=== PATIENT | male | born 1955 | race Hispanic/Latino ===

== ENCOUNTER 2022-11-01 10:45 | Inpatient (IN) | payer OTHER ==
[2022-11-05 11:12] VITALS: BMI 34.2
[2022-11-06] MEDS ORDERED: Thrombin 5000 UNITS/5 ML VIAL ONE (06:10)
[2022-11-06] MEDS ORDERED: Neomycin-Polymyxin 1 ML AMP ONE (06:10)
[2022-11-06] MEDS ORDERED: Sodium Chloride 0.9% 100 ML ONE (06:26)
[2022-11-06] MEDS ORDERED: CEFAZOLIN 2 GM VIAL ONE (06:26)
[2022-11-06] MEDS ORDERED: Acetaminophen 325 MG TAB PO PRN (06:38)
[2022-11-06] MEDS ORDERED: Acetaminophen/Codeine 30-300mg Tablet PO PRN (06:38)
[2022-11-06] MEDS ORDERED: diphenhydrAMINE 50 MG/ML VIAL IVP PRN (06:38)
[2022-11-06] MEDS ORDERED: Morphine 2 MG/ML VIAL SLOW IVP PRN (06:38)
[2022-11-06] MEDS ORDERED: Cyclobenzaprine 10 MG TAB PO PRN (06:38)
[2022-11-06] MEDS ORDERED: Mag-Al 1200 mg/1200 mg/30 ML UDCUP PO PRN (06:38)
[2022-11-06] MEDS ORDERED: Ondansetron PF 4 MG/2 ML Vial IVP PRN (06:38)
[2022-11-06] MEDS ORDERED: Milk Of Magnesia 30 ML UDCUP PO PRN (06:38)
[2022-11-06] MEDS ORDERED: Promethazine 25 MG TAB PO PRN (06:38)
[2022-11-06] MEDS ORDERED: Fentanyl 250 MCG/5 ML VIAL ONE (06:44)
[2022-11-06] MEDS ORDERED: Sodium Chloride 0.9% 1,000 ML IV SCH (06:45)
[2022-11-06] MEDS ORDERED: Rocuronium Bromide 10 MG/ML (10ML VIAL) ONE (06:56)
[2022-11-06] MEDS ORDERED: Ondansetron PF 4 MG/2 ML Vial ONE ×2 (06:56→13:53)
[2022-11-06] MEDS ORDERED: Dexamethasone 20 MG/5 ML VIAL ONE (06:56)
[2022-11-06] MEDS ORDERED: Lidocaine 1% PF 5 ML VIAL ONE (06:56)
[2022-11-06] MEDS ORDERED: PROPOFOL 200 MG/20 ML VIAL ONE (06:56)
[2022-11-06] MEDS ORDERED: PHENYLEPHRINE-NS 100 MCG/ML 10 ML SYRINGE ONE (06:56)
[2022-11-06] MEDS ORDERED: Vecuronium 10 MG VIAL ONE (06:56)
[2022-11-06 08:01] LABS: SARS-CoV-2 NAA Rapid Test Not Detected (NotDetected)
[2022-11-06] MEDS ORDERED: Phenylephrine 10 MG/ML VIAL ONE (08:36)
[2022-11-06] MEDS ORDERED: SUGAMMADEX SODIUM 200 MG/2 ML VIAL ONE (11:21)
[2022-11-06] MEDS ORDERED: HYDROmorphone 0.5 MG/0.5 ML SYRINGE ONE ×4 (12:12→12:49)
[2022-11-06] MEDS ORDERED: Fentanyl 100 MCG/2 ML VIAL ONE (12:58)
[2022-11-06] MEDS ORDERED: Promethazine HCl 25 MG/ML VIAL ONE (14:04)
[2022-11-06] MEDS ORDERED: Morphine 2 MG/ML VIAL ONE (16:51)
[2022-11-06] MEDS: Sodium Chloride 0.9% 1,000 ML IV SCH (18:35)
[2022-11-06] MEDS: CEFAZOLIN 2 GM in Sodium Chloride 0.9% 100 ML IVPB SCH (18:35)
[2022-11-06] MEDS: HYDROcodone/Acetaminophen 7.5/325 mg Tablet PO PRN (20:32)
[2022-11-07] MEDS: CEFAZOLIN 2 GM in Sodium Chloride 0.9% 100 ML IVPB SCH (01:59)
[2022-11-07] MEDS ORDERED: Dextrose 50% Abboject 50 ML SYRINGE SLOW IVP PRN (02:30)
[2022-11-07] MEDS ORDERED: HumaLOG 300 UNITS/3 ML VIAL SC PRN (02:30)
[2022-11-07] MEDS ORDERED: Dextrose 5% in Water 1,000 ML IV PRN (02:30)
[2022-11-07] MEDS: HYDROcodone/Acetaminophen 7.5/325 mg Tablet PO PRN (03:29)
[2022-11-07] MEDS: Sodium Chloride 0.9% 1,000 ML IV SCH (03:33)
[2022-11-07 08:44] VITALS: BP 132/77; TEMP 98.4
[2022-11-07] MEDS ORDERED: Lisinopril 20 MG TAB PO SCH (09:00)
[2022-11-07] MEDS ORDERED: FLU VACC QS2022-23(65YR UP)/PF 240 MCG/0.7 ML SYRINGE IM ONE (09:00)
== END 2022-11-07 09:46 | disposition home or self-care (01) | DRG 472 ==
LOC: SURG A 11-06 05:34 → MSONC 11-06 17:46
PROVIDERS: ADMIT Neurological Surgery; ATTEND Neurological Surgery
PROC: 0RG20A0 Fusion of 2 or more Cervical Vertebral Joints with Interbody Fusion Device, Anterior Approach, Anterior Column, Open Approach (ICD-10-PCS; principal; 2022-11-06)
PROC: 0RB30ZZ Excision of Cervical Vertebral Disc, Open Approach (ICD-10-PCS; 2022-11-06)
DX: M50.01 Cervical disc disorder with myelopathy, high cervical region (principal); M47.12 Other spondylosis with myelopathy, cervical region; M50.00 Cervical disc disorder with myelopathy, unspecified cervical region; M48.02 Spinal stenosis, cervical region; E78.00 Pure hypercholesterolemia, unspecified; G89.29 Other chronic pain; E11.9 Type 2 diabetes mellitus without complications; I10 Essential (primary) hypertension; M50.21 Other cervical disc displacement, high cervical region; M48.062 Spinal stenosis, lumbar region with neurogenic claudication; M21.371 Foot drop, right foot; Z79.84 Long term (current) use of oral hypoglycemic drugs; Z79.899 Other long term (current) drug therapy; Z79.82 Long term (current) use of aspirin
CPT/HCPCS: 36416; 87804; 93005; 93010; C1713; C1768; J1100; J1170; J2272; J2370; J2405; J2550; J2704; J3010; J3490; J7050; U0002

== ENCOUNTER 2023-05-22 14:58 | Outpatient (CLI) | payer OTHER ==
[2023-05-22 15:47] LABS: Hemoglobin 14.3 g/dL (13.5-17.5); Mean Corpuscular Hemoglobin 29.4 pg (27.0-33.0); Mean Corpuscular Volume 88.9 fl (81.2-95.1); Platelet Count 147 10x3/uL (150-450); RBC Distribution Width 12.6 % (11.5-14.5); Red Blood Cell (RBC) Count 4.87 10x6/uL (4.32-5.72)
[2023-05-22 16:03] LABS: PTT 29.9 sec (22.0-33.0); Prothrombin Time 10.8 sec (9.5-12.1)
[2023-05-22 16:19] LABS: Anion Gap 19 mmol/L (10-20); BUN (Urea Nitrogen) 20 mg/dL (8.4-25.7); Calc. Creatinine Clearance 0 mL/min (70-130); Calcium 9.6 mg/dL (7.8-10.44); Carbon Dioxide 23 mmol/L (23-31); Chloride 102 mmol/L (98-107); Estimated GFR 81; Glucose 192 mg/dL (80-115); Potassium 4.5 mmol/L (3.5-5.1); Sodium 139 mmol/L (136-145)
== END 2023-05-22 14:59 | disposition home or self-care (01) ==
LOC: LABBT 14:58
PROVIDERS: ATTEND Neurological Surgery
DX: Z01.818 Encounter for other preprocedural examination (principal); T84.296A Other mechanical complication of internal fixation device of vertebrae, initial encounter; M48.061 Spinal stenosis, lumbar region without neurogenic claudication
CPT/HCPCS: 80048; 85027; 85610; 85730; 93005; 93010

== ENCOUNTER 2023-05-22 16:00 | Inpatient (IN) | payer OTHER ==
[2023-05-23] MEDS ORDERED: Vancomycin 1 GM VIAL ONE (06:20)
[2023-05-23] MEDS ORDERED: Bupivacaine HCl 0.5%/Epinephrine 1:200,000/PF 30 ml Vial ONE (06:20)
[2023-05-23] MEDS ORDERED: Thrombin 5000 UNITS/5 ML VIAL ONE (06:20)
[2023-05-23] MEDS ORDERED: Dexmedetomidine 200 MCG/2 ML VIAL ONE (06:26)
[2023-05-23] MEDS ORDERED: Fentanyl 250 MCG/5 ML VIAL ONE (06:26)
[2023-05-23] MEDS ORDERED: Morphine 2 MG/ML VIAL SLOW IVP PRN (06:38)
[2023-05-23] MEDS ORDERED: Prochlorperazine 10 MG/2 ML VIAL IM PRN (06:38)
[2023-05-23] MEDS ORDERED: Ondansetron PF 4 MG/2 ML Vial IVP PRN ×2 (06:38→06:51)
[2023-05-23] MEDS ORDERED: Promethazine HCl 25 MG/ML VIAL IM PRN ×2 (06:38→14:03)
[2023-05-23] MEDS ORDERED: Mag-Al 1200 mg/1200 mg/30 ML UDCUP PO PRN (06:38)
[2023-05-23] MEDS ORDERED: Milk Of Magnesia 30 ML UDCUP PO PRN (06:38)
[2023-05-23] MEDS ORDERED: tiZANidine HCl 4 MG TAB PO PRN (06:43)
[2023-05-23] MEDS ORDERED: Sodium Chloride 0.9% 100 ML ONE ×2 (06:47→15:06)
[2023-05-23] MEDS ORDERED: CEFAZOLIN 2 GM VIAL ONE ×2 (06:47→15:06)
[2023-05-23] MEDS ORDERED: ePHEDrine Sulfate 50 MG/10 ML VIAL ONE (07:04)
[2023-05-23] MEDS ORDERED: Dexamethasone 20 MG/5 ML VIAL ONE (07:04)
[2023-05-23] MEDS ORDERED: Vecuronium 10 MG VIAL ONE ×2 (07:04→09:52)
[2023-05-23] MEDS ORDERED: Glycopyrrolate 0.2 MG/ML 5 ML SYRINGE ONE (07:04)
[2023-05-23] MEDS ORDERED: Rocuronium Bromide 10 MG/ML (10ML VIAL) ONE (07:04)
[2023-05-23] MEDS ORDERED: Lidocaine 1% PF 5 ML VIAL ONE (07:04)
[2023-05-23] MEDS ORDERED: Ondansetron PF 4 MG/2 ML Vial ONE (07:04)
[2023-05-23] MEDS ORDERED: PHENYLEPHRINE-NS 100 MCG/ML 10 ML SYRINGE ONE (07:04)
[2023-05-23] MEDS ORDERED: PROPOFOL 200 MG/20 ML VIAL ONE (07:04)
[2023-05-23] MEDS ORDERED: NEOSTIGMINE 3 MG/3 ML SYR 3 MG/3 ML SYRINGE ONE (07:04)
[2023-05-23] MEDS ORDERED: Ketamine 50 MG/ML (10ML VIAL) ONE (09:52)
[2023-05-23] MEDS ORDERED: fentaNYL 50 mcg/mL 1 mL Vial ONE (13:53)
[2023-05-23] MEDS ORDERED: HYDROmorphone 2 MG/ML VIAL SLOW IVP PRN (14:03)
[2023-05-23] MEDS ORDERED: Morphine Sulfate 2 MG/ML SYRINGE SLOW IVP PRN (14:03)
[2023-05-23] MEDS ORDERED: Ondansetron HCl/PF 4 MG/2 ML Vial IVP PRN (14:03)
[2023-05-23] MEDS ORDERED: PACU-Morphine 4MG/ML VIAL SLOW IVP PRN (14:03)
[2023-05-23] MEDS ORDERED: HYDROmorphone 2 MG/ML VIAL ONE (14:16)
[2023-05-23] MEDS: CEFAZOLIN 2 GM in Sodium Chloride 0.9% 100 ML IVPB SCH (15:07)
[2023-05-23] MEDS: Sodium Chloride 0.9% 1,000 ML IV SCH ×2 (16:31→21:02)
[2023-05-23 16:44] VITALS: BMI 32.6
[2023-05-23] MEDS ORDERED: Dextrose 5% in Water 1,000 ML IV PRN (19:54)
[2023-05-23] MEDS ORDERED: Glucagon 1 MG/ML KIT IM PRN (19:54)
[2023-05-23] MEDS ORDERED: Dextrose 50% Abboject 50 ML SYRINGE SLOW IVP PRN (19:54)
[2023-05-23] MEDS: HumaLOG 300 UNITS/3 ML VIAL SC PRN (21:06)
[2023-05-24] MEDS: CEFAZOLIN 2 GM in Sodium Chloride 0.9% 100 ML IVPB SCH (00:18)
[2023-05-24] MEDS: HYDROcodone/Acetaminophen 10/325 mg Tablet PO PRN ×3 (04:07→14:44)
[2023-05-24 05:15] LABS: #Neutrophils 9.7 thou/uL (1.40-6.50); %Basophils 0.1 % (0.0-1.0); %Lymphocytes 7.5 % (21.0-51.0); %Monocytes 8.3 % (0.0-10.0); %Neutrophils 83.8 % (42.0-75.0); Hemoglobin 10.5 g/dL (14.0-18.0); Mean Corpuscular HGB CONC 33.3 g/dL (32.0-36.0); Mean Corpuscular Hemoglobin 29.8 pg (27.0-31.0); Mean Corpuscular Volume 89.5 fl (78.0-98.0); Platelet Count 136 10x3/uL (130-400); RBC Distribution Width 13.1 % (11.5-14.5); Red Blood Cell (RBC) Count 3.52 mill/uL (4.70-6.10); White Blood Cell (WBC) Count 11.5 10x3/uL (4.8-10.8)
[2023-05-24 05:23] LABS: Hemoglobin A1c 6.5 % (4.0-6.0)
[2023-05-24 05:41] LABS: Anion Gap 16 mmol/L (10-20); BUN (Urea Nitrogen) 26 mg/dL (8.4-25.7); Calc. Creatinine Clearance 73 mL/min (70-130); Calcium 8.4 mg/dL (7.8-10.44); Carbon Dioxide 22 mmol/L (23-31); Chloride 103 mmol/L (98-107); Estimated GFR 61; Glucose 177 mg/dL (80-115); Potassium 4.1 mmol/L (3.5-5.1); Sodium 137 mmol/L (136-145)
[2023-05-24] MEDS: Glimepiride 4 MG TAB PO SCH (08:49)
[2023-05-24] MEDS: Lisinopril 20 MG TAB PO SCH (08:50)
[2023-05-24] MEDS: Metoprolol Tartrate 25 MG TAB PO SCH ×2 (08:50→21:44)
[2023-05-24] MEDS: Empagliflozin 25 MG TAB PO SCH (08:50)
[2023-05-24] MEDS: Sodium Chloride 0.9% 1,000 ML IV SCH ×2 (09:10→21:05)
[2023-05-24 09:14] LABS: Bacteria/HPF None Seen HPF (None Seen); RBC/HPF 0-3 HPF (0-3); Squamous Epithelial None Seen HPF (0-3); WBC/HPF 0-3 HPF (0-3)
[2023-05-24] MEDS: HumaLOG 300 UNITS/3 ML VIAL SC PRN ×3 (12:38→21:07)
[2023-05-24] MEDS: Acetaminophen/Codeine 30-300mg Tablet PO PRN ×2 (14:45→23:41)
[2023-05-24] MEDS ORDERED: Sodium Chloride 0.9% 500 ML IV SCH ×2 (15:15→22:45)
[2023-05-25] MEDS: Acetaminophen/Codeine 30-300mg Tablet PO PRN (03:35)
[2023-05-25 05:47] LABS: #Monocytes 0.7 thou/uL (0.11-0.59); #Neutrophils 4.9 thou/uL (1.40-6.50); %Basophils 0.3 % (0.0-1.0); %Lymphocytes 17.9 % (21.0-51.0); %Monocytes 10.5 % (0.0-10.0); %Neutrophils 70.9 % (42.0-75.0); Hemoglobin 8.4 g/dL (14.0-18.0); Mean Corpuscular HGB CONC 32.3 g/dL (32.0-36.0); Mean Corpuscular Hemoglobin 29.8 pg (27.0-31.0); Mean Corpuscular Volume 92.2 fl (78.0-98.0); Mean Platelet Volume 12.4 fL (7.4-10.4); Platelet Count 97 10x3/uL (130-400); RBC Distribution Width 13.2 % (11.5-14.5); Red Blood Cell (RBC) Count 2.82 mill/uL (4.70-6.10); White Blood Cell (WBC) Count 6.9 10x3/uL (4.8-10.8)
[2023-05-25 06:22] LABS: Anion Gap 11 mmol/L (10-20); BUN (Urea Nitrogen) 23 mg/dL (8.4-25.7); Calc. Creatinine Clearance 86 mL/min (70-130); Calcium 7.9 mg/dL (7.8-10.44); Carbon Dioxide 27 mmol/L (23-31); Chloride 106 mmol/L (98-107); Estimated GFR 75; Glucose 101 mg/dL (80-115); Potassium 4.2 mmol/L (3.5-5.1); Sodium 140 mmol/L (136-145)
[2023-05-25 06:47] LABS: CellaVision Operator ID lab.abc; Platelet Adequacy Comment Platelets Decreased; RBC Morphology Within Normal Limits; Smudge Cells 52.5 %
[2023-05-25] MEDS: HYDROcodone/Acetaminophen 10/325 mg Tablet PO PRN ×3 (08:41→21:19)
[2023-05-25] MEDS: Empagliflozin 25 MG TAB PO SCH (08:41)
[2023-05-25] MEDS: Metoprolol Tartrate 25 MG TAB PO SCH ×2 (08:41→21:20)
[2023-05-25] MEDS: Glimepiride 4 MG TAB PO SCH (08:41)
[2023-05-25] MEDS: Lisinopril 20 MG TAB PO SCH (11:22)
[2023-05-25] MEDS ORDERED: Docusate 100 MG CAP PO PRN (13:54)
[2023-05-25] MEDS ORDERED: Polyethylene Glycol 3350 17 GM Packet PO PRN (13:54)
[2023-05-25] MEDS: Sodium Chloride 0.9% 1,000 ML IV SCH ×2 (14:53→22:36)
[2023-05-26 05:20] LABS: #Monocytes 0.7 thou/uL (0.11-0.59); #Neutrophils 5.3 thou/uL (1.40-6.50); %Basophils 0.3 % (0.0-1.0); %Eosinophils 0.3 % (0.0-10.0); %Monocytes 9.5 % (0.0-10.0); %Neutrophils 71.5 % (42.0-75.0); Mean Corpuscular HGB CONC 33.1 g/dL (32.0-36.0); Mean Corpuscular Hemoglobin 29.3 pg (27.0-31.0); Mean Platelet Volume 12.1 fL (7.4-10.4); RBC Distribution Width 13.6 % (11.5-14.5); White Blood Cell (WBC) Count 7.4 10x3/uL (4.8-10.8)
[2023-05-26 05:51] LABS: Mean Corpuscular Volume 88.5 fl (78.0-98.0); Platelet Count 108 10x3/uL (130-400)
[2023-05-26 05:59] LABS: Anion Gap 15 mmol/L (10-20); BUN (Urea Nitrogen) 15 mg/dL (8.4-25.7); Calc. Creatinine Clearance 107 mL/min (70-130); Carbon Dioxide 27 mmol/L (23-31); Chloride 100 mmol/L (98-107); Estimated GFR 95; Glucose 82 mg/dL (80-115); Potassium 3.8 mmol/L (3.5-5.1); Sodium 138 mmol/L (136-145)
[2023-05-26] MEDS: HYDROcodone/Acetaminophen 10/325 mg Tablet PO PRN ×3 (06:14→20:20)
[2023-05-26] MEDS: Metoprolol Tartrate 25 MG TAB PO SCH ×2 (09:25→20:54)
[2023-05-26] MEDS: Lisinopril 20 MG TAB PO SCH (09:25)
[2023-05-26] MEDS: Empagliflozin 25 MG TAB PO SCH (09:26)
[2023-05-26] MEDS: Glimepiride 4 MG TAB PO SCH (09:26)
[2023-05-26] MEDS ORDERED: Docusate 100 MG CAP PO SCH (12:00)
[2023-05-26] MEDS ORDERED: Polyethylene Glycol 3350 17 GM Packet PO SCH (12:00)
[2023-05-26] MEDS: Sodium Chloride 0.9% 1,000 ML IV SCH (14:36)
[2023-05-26] MEDS: HumaLOG 300 UNITS/3 ML VIAL SC PRN (21:36)
[2023-05-27] MEDS: Sodium Chloride 0.9% 1,000 ML IV SCH ×3 (05:50→19:38)
[2023-05-27] MEDS: HYDROcodone/Acetaminophen 10/325 mg Tablet PO PRN ×2 (06:05→16:00)
[2023-05-27] MEDS: Empagliflozin 25 MG TAB PO SCH (09:01)
[2023-05-27] MEDS: Metoprolol Tartrate 25 MG TAB PO SCH ×2 (09:01→19:53)
[2023-05-27] MEDS: Polyethylene Glycol 3350 17 GM Packet PO SCH (09:01)
[2023-05-27] MEDS: Lisinopril 20 MG TAB PO SCH (09:01)
[2023-05-27] MEDS: Docusate 100 MG CAP PO SCH (09:01)
[2023-05-27] MEDS: Glimepiride 4 MG TAB PO SCH (09:04)
[2023-05-27] MEDS ORDERED: Bisacodyl 10 MG SUPP PR SCH (14:30)
[2023-05-27] MEDS: Acetaminophen/Codeine 30-300mg Tablet PO PRN ×2 (17:20→22:44)
[2023-05-28] MEDS: HYDROcodone/Acetaminophen 7.5/325 mg Tablet PO PRN ×2 (08:42→17:43)
[2023-05-28] MEDS: Metoprolol Tartrate 25 MG TAB PO SCH ×2 (08:44→19:51)
[2023-05-28] MEDS: Docusate 100 MG CAP PO SCH (08:44)
[2023-05-28] MEDS: Glimepiride 4 MG TAB PO SCH (08:44)
[2023-05-28] MEDS: Polyethylene Glycol 3350 17 GM Packet PO SCH (08:44)
[2023-05-28] MEDS: Empagliflozin 25 MG TAB PO SCH (08:44)
[2023-05-28] MEDS: Lisinopril 20 MG TAB PO SCH (08:44)
[2023-05-28] MEDS: HumaLOG 300 UNITS/3 ML VIAL SC PRN ×2 (12:29→17:41)
[2023-05-28] MEDS: HYDROcodone/Acetaminophen 10/325 mg Tablet PO PRN (12:34)
[2023-05-28] MEDS: Acetaminophen/Codeine 30-300mg Tablet PO PRN (23:16)
[2023-05-29 05:49] LABS: Hemoglobin 11.6 g/dL (14.0-18.0); Mean Corpuscular HGB CONC 33.3 g/dL (32.0-36.0); Mean Corpuscular Hemoglobin 29.3 pg (27.0-31.0); Mean Corpuscular Volume 87.9 fl (78.0-98.0); Mean Platelet Volume 11.5 fL (7.4-10.4); Platelet Count 151 10x3/uL (130-400); RBC Distribution Width 13.2 % (11.5-14.5); Red Blood Cell (RBC) Count 3.96 mill/uL (4.70-6.10); White Blood Cell (WBC) Count 5.1 10x3/uL (4.8-10.8)
[2023-05-29 06:10] LABS: Anion Gap 13 mmol/L (10-20); BUN (Urea Nitrogen) 25 mg/dL (8.4-25.7); Calc. Creatinine Clearance 81 mL/min (70-130); Calcium 8.7 mg/dL (7.8-10.44); Carbon Dioxide 27 mmol/L (23-31); Chloride 103 mmol/L (98-107); Estimated GFR 69; Glucose 146 mg/dL (80-115); Potassium 4.3 mmol/L (3.5-5.1); Sodium 139 mmol/L (136-145)
[2023-05-29] MEDS: Metoprolol Tartrate 25 MG TAB PO SCH ×2 (08:22→21:52)
[2023-05-29] MEDS: Lisinopril 20 MG TAB PO SCH (08:22)
[2023-05-29] MEDS: Glimepiride 4 MG TAB PO SCH (08:23)
[2023-05-29] MEDS: Docusate 100 MG CAP PO SCH (08:23)
[2023-05-29] MEDS: Acetaminophen/Codeine 30-300mg Tablet PO PRN ×4 (08:23→21:51)
[2023-05-29] MEDS: Empagliflozin 25 MG TAB PO SCH (08:23)
[2023-05-29] MEDS: Polyethylene Glycol 3350 17 GM Packet PO SCH (08:23)
[2023-05-29] MEDS: HumaLOG 300 UNITS/3 ML VIAL SC PRN ×2 (12:14→17:36)
[2023-05-29] MEDS: Capsaicin 0.025% Cream 60 gm Tube TOP PRN (16:03)
[2023-05-29] MEDS: Senokot S 8.6-50 MG TAB PO SCH (21:51)
[2023-05-30] MEDS: Capsaicin 0.025% Cream 60 gm Tube TOP PRN ×3 (00:14→18:16)
[2023-05-30] MEDS: Acetaminophen/Codeine 30-300mg Tablet PO PRN ×3 (05:21→20:58)
[2023-05-30] MEDS: Lisinopril 20 MG TAB PO SCH (08:00)
[2023-05-30] MEDS: Glimepiride 4 MG TAB PO SCH (08:00)
[2023-05-30] MEDS: Empagliflozin 25 MG TAB PO SCH (08:00)
[2023-05-30] MEDS: Metoprolol Tartrate 25 MG TAB PO SCH ×2 (08:01→20:57)
[2023-05-30] MEDS: Polyethylene Glycol 3350 17 GM Packet PO SCH (08:01)
[2023-05-30] MEDS: Senokot S 8.6-50 MG TAB PO SCH ×2 (08:01→20:59)
[2023-05-30] MEDS ORDERED: Milk Of Magnesia 30 ML UDCUP PO SCH (10:45)
[2023-05-30] MEDS: metFORMIN 500 MG TAB PO SCH (18:16)
[2023-05-31] MEDS: Glimepiride 4 MG TAB PO SCH (09:04)
[2023-05-31] MEDS: Polyethylene Glycol 3350 17 GM Packet PO SCH (09:04)
[2023-05-31] MEDS: Empagliflozin 25 MG TAB PO SCH (09:04)
[2023-05-31] MEDS: Metoprolol Tartrate 25 MG TAB PO SCH (09:05)
[2023-05-31] MEDS: metFORMIN 500 MG TAB PO SCH (09:07)
[2023-05-31] MEDS: Lisinopril 20 MG TAB PO SCH (09:08)
[2023-05-31] MEDS: Senokot S 8.6-50 MG TAB PO SCH (09:08)
[2023-05-31] MEDS: Capsaicin 0.025% Cream 60 gm Tube TOP PRN (12:30)
[2023-05-31 12:55] VITALS: BP 110/59; TEMP 98.7
== END 2023-05-31 16:30 | disposition home or self-care (01) | DRG 454 ==
LOC: SURG A 05-23 05:33
PROVIDERS: ADMIT Neurological Surgery; ATTEND Internal Medicine
PROC: 0SG30AJ Fusion of Lumbosacral Joint with Interbody Fusion Device, Posterior Approach, Anterior Column, Open Approach (ICD-10-PCS; principal; 2023-05-23)
PROC: 0SG3071 Fusion of Lumbosacral Joint with Autologous Tissue Substitute, Posterior Approach, Posterior Column, Open Approach (ICD-10-PCS; 2023-05-23)
PROC: 0RP10AZ Removal of Interbody Fusion Device from Cervical Vertebral Joint, Open Approach (ICD-10-PCS; 2023-05-23)
PROC: 01NB0ZZ Release Lumbar Nerve, Open Approach (ICD-10-PCS; 2023-05-23)
PROC: 30233J1 Transfusion of Nonautologous Serum Albumin into Peripheral Vein, Percutaneous Approach (ICD-10-PCS; 2023-05-25)
PROC: 4A11X4G Monitoring of Peripheral Nervous Electrical Activity, Intraoperative, External Approach (ICD-10-PCS; 2023-05-25)
DX: T84.296A Other mechanical complication of internal fixation device of vertebrae, initial encounter (principal); D62 Acute posthemorrhagic anemia; M47.12 Other spondylosis with myelopathy, cervical region; M48.062 Spinal stenosis, lumbar region with neurogenic claudication; E78.5 Hyperlipidemia, unspecified; I10 Essential (primary) hypertension; K59.00 Constipation, unspecified; M17.12 Unilateral primary osteoarthritis, left knee; Z79.84 Long term (current) use of oral hypoglycemic drugs; Z79.82 Long term (current) use of aspirin; Z79.899 Other long term (current) drug therapy; G89.29 Other chronic pain; E11.42 Type 2 diabetes mellitus with diabetic polyneuropathy; Y82.8 Other medical devices associated with adverse incidents
CPT/HCPCS: 36415; 36416; 36430; 71045; 72040; 72100; 74018; 80048; 81015; 83036; 85025; 85027; 86850; 86900; 86901; 87086; 93970; C1713; C1889; J1100; J1170; J1815; J2405; J2704; J3010; J3370; J3490; J7030; J7050; P9016

== ENCOUNTER 2023-09-06 14:11 | Outpatient (CLI) | payer OTHER ==
[2023-09-06 15:54] LABS: Hemoglobin 11.9 g/dL (13.5-17.5); Mean Corpuscular HGB CONC 32.2 g/dL (32.0-36.0); Mean Corpuscular Volume 87.1 fl (81.2-95.1); Mean Platelet Volume 12.4 fl (7.4-10.4); Platelet Count 203 10x3/uL (150-450); RBC Distribution Width 14.1 % (11.5-14.5); Red Blood Cell (RBC) Count 4.25 10x6/uL (4.32-5.72); White Blood Cell (WBC) Count 6.1 10x3/uL (3.5-10.5)
[2023-09-06 16:10] LABS: PTT 30.8 sec (22.0-33.0); Prothrombin Time 11.2 sec (9.5-12.1)
[2023-09-06 16:14] LABS: Anion Gap 16 mmol/L (10-20); BUN (Urea Nitrogen) 14 mg/dL (8.4-25.7); Calc. Creatinine Clearance 0 mL/min (70-130); Calcium 9.4 mg/dL (7.8-10.44); Carbon Dioxide 26 mmol/L (23-31); Chloride 103 mmol/L (98-107); Estimated GFR 98; Glucose 57 mg/dL (80-115); Potassium 4.3 mmol/L (3.5-5.1); Sodium 141 mmol/L (136-145)
== END 2023-09-06 14:12 | disposition home or self-care (01) ==
LOC: LABBT 14:11
PROVIDERS: ATTEND Neurological Surgery
DX: Z01.818 Encounter for other preprocedural examination (principal); T84.498A Other mechanical complication of other internal orthopedic devices, implants and grafts, initial encounter
CPT/HCPCS: 80048; 85027; 85610; 85730; 93005; 93010

== ENCOUNTER 2023-09-06 15:30 | Inpatient (IN) | payer OTHER ==
[2023-09-06 15:16] VITALS: BMI 29.0
[2023-09-09] MEDS ORDERED: EPINEPHrine 1 MG/ML VIAL ONE (06:10)
[2023-09-09] MEDS ORDERED: Vancomycin 1 GM VIAL ONE (06:11)
[2023-09-09] MEDS ORDERED: Thrombin 5000 UNITS/5 ML VIAL ONE (06:11)
[2023-09-09] MEDS ORDERED: Bupivacaine PF 0.5% 30 ML VIAL ONE (06:11)
[2023-09-09] MEDS ORDERED: Ketamine In 0.9 % NaCl 50 MG/5 ML SYRINGE ONE (06:18)
[2023-09-09] MEDS ORDERED: Fentanyl 250 MCG/5 ML VIAL ONE (06:18)
[2023-09-09] MEDS ORDERED: Sodium Chloride 0.9% 100 ML ONE (06:37)
[2023-09-09] MEDS ORDERED: CEFAZOLIN 2 GM VIAL ONE (06:37)
[2023-09-09] MEDS ORDERED: Famotidine/PF 20 mg/2ml Vial ONE (06:55)
[2023-09-09] MEDS ORDERED: Ketorolac Tromethamine 30 MG/ML VIAL ONE (06:56)
[2023-09-09] MEDS ORDERED: Esmolol 100 MG/10 ML VIAL ONE (06:56)
[2023-09-09] MEDS ORDERED: Lidocaine 1% PF 5 ML VIAL ONE (06:56)
[2023-09-09] MEDS ORDERED: Metoclopramide HCl 10 MG/2 ML VIAL ONE (06:56)
[2023-09-09] MEDS ORDERED: Vecuronium 10 MG VIAL ONE (06:56)
[2023-09-09] MEDS ORDERED: PHENYLEPHRINE-NS 100 MCG/ML 10 ML SYRINGE ONE (06:56)
[2023-09-09] MEDS ORDERED: PROPOFOL 200 MG/20 ML VIAL ONE (06:56)
[2023-09-09] MEDS ORDERED: Dexamethasone 20 MG/5 ML VIAL ONE (06:56)
[2023-09-09] MEDS ORDERED: Ondansetron PF 4 MG/2 ML Vial ONE (06:56)
[2023-09-09] MEDS ORDERED: Rocuronium Bromide 10 MG/ML (10ML VIAL) ONE (06:56)
[2023-09-09] MEDS ORDERED: Albumin 5% 500 ML ONE (08:53)
[2023-09-09] MEDS ORDERED: SUGAMMADEX SODIUM 200 MG/2 ML VIAL ONE (12:58)
[2023-09-09] MEDS ORDERED: Promethazine HCl 25 MG/ML VIAL IM PRN ×2 (13:07→13:35)
[2023-09-09] MEDS ORDERED: Ondansetron HCl/PF 4 MG/2 ML Vial IVP PRN (13:07)
[2023-09-09] MEDS ORDERED: HYDROmorphone 2 MG/ML VIAL SLOW IVP PRN (13:07)
[2023-09-09] MEDS ORDERED: Morphine Sulfate 2 MG/ML SYRINGE SLOW IVP PRN (13:07)
[2023-09-09] MEDS ORDERED: PACU-Morphine 4MG/ML VIAL SLOW IVP PRN (13:07)
[2023-09-09] MEDS ORDERED: Promethazine 25 MG TAB PO PRN (13:35)
[2023-09-09] MEDS ORDERED: diphenhydrAMINE 50 MG/ML VIAL IVP PRN (13:35)
[2023-09-09] MEDS ORDERED: HYDROcodone/Acetaminophen 10/325 mg Tablet PO PRN (13:35)
[2023-09-09] MEDS ORDERED: Promethazine HCl 12.5 MG SUPP PR PRN (13:35)
[2023-09-09] MEDS ORDERED: Ondansetron PF 4 MG/2 ML Vial IVP PRN (13:35)
[2023-09-09] MEDS ORDERED: Morphine 2 MG/ML VIAL SLOW IVP PRN (13:35)
[2023-09-09] MEDS ORDERED: fentaNYL PF 100 MCG/2 ML SYRINGE ONE (13:53)
[2023-09-09] MEDS ORDERED: Scopolamine 1 mg/72 hour Patch TD SCH (14:00)
[2023-09-09] MEDS ORDERED: fentaNYL 50 mcg/mL 1 mL Vial ONE (14:35)
[2023-09-09] MEDS: Sodium Chloride 0.9% 1,000 ML IV SCH (16:14)
[2023-09-09] MEDS: HYDROcodone/Acetaminophen 10/325 mg Tablet PO PRN ×2 (17:46→21:32)
[2023-09-09] MEDS: CEFAZOLIN 2 GM in Sodium Chloride 0.9% 100 ML IVPB SCH (19:58)
[2023-09-09] MEDS: metFORMIN 500 MG TAB PO SCH (19:58)
[2023-09-09] MEDS: Lisinopril 20 MG TAB PO SCH (19:59)
[2023-09-09] MEDS ORDERED: Dextrose 50% Abboject 50 ML SYRINGE SLOW IVP PRN (20:36)
[2023-09-09] MEDS ORDERED: Dextrose 5% in Water 1,000 ML IV PRN (20:36)
[2023-09-09] MEDS ORDERED: Glucagon 1 MG/ML KIT IM PRN (20:36)
[2023-09-09] MEDS: Cyclobenzaprine 10 MG TAB PO PRN (21:32)
[2023-09-09] MEDS ORDERED: HumaLOG 300 UNITS/3 ML VIAL SC PRN ×2 (22:06)
[2023-09-10] MEDS: CEFAZOLIN 2 GM in Sodium Chloride 0.9% 100 ML IVPB SCH ×2 (04:48→12:27)
[2023-09-10] MEDS: HYDROcodone/Acetaminophen 10/325 mg Tablet PO PRN ×5 (04:49→22:12)
[2023-09-10] MEDS: Sodium Chloride 0.9% 1,000 ML IV SCH ×2 (04:52→17:42)
[2023-09-10 04:57] LABS: #Monocytes 0.9 thou/uL (0.11-0.59); #Neutrophils 8.2 thou/uL (1.40-6.50); %Basophils 0.1 % (0.0-1.0); %Eosinophils 0.1 % (0.0-10.0); %Lymphocytes 9.3 % (21.0-51.0); %Monocytes 8.9 % (0.0-10.0); %Neutrophils 81.2 % (42.0-75.0); Hematocrit 32.1 % (42.0-52.0); Hemoglobin 10.3 g/dL (14.0-18.0); Mean Corpuscular HGB CONC 32.1 g/dL (32.0-36.0); Mean Corpuscular Hemoglobin 27.8 pg (27.0-31.0); Mean Corpuscular Volume 86.8 fl (78.0-98.0); Mean Platelet Volume 11.4 fL (7.4-10.4); Platelet Count 185 10x3/uL (130-400)
[2023-09-10 05:25] LABS: ALT (SGPT) 18 U/L (8-55); AST (SGOT) 25 U/L (5-34); Alkaline Phosphatase 83 U/L (40-110); Anion Gap 13 mmol/L (10-20); BUN (Urea Nitrogen) 19 mg/dL (8.4-25.7); Bilirubin, Total 0.3 mg/dL (0.2-1.2); Calc. Creatinine Clearance 75 mL/min (70-130); Calcium 8.9 mg/dL (7.8-10.44); Carbon Dioxide 27 mmol/L (23-31); Chloride 102 mmol/L (98-107); Estimated GFR 72; Globulin 2.5 g/dL (2.4-3.5); Glucose 79 mg/dL (80-115); Potassium 4.7 mmol/L (3.5-5.1); Protein, Total 6.5 g/dL (5.8-8.1); Sodium 137 mmol/L (136-145)
[2023-09-10] MEDS: Tamsulosin HCl 0.4 MG CAP PO SCH (06:52)
[2023-09-10] MEDS: Isosorbide Mononitrate 30 MG ER.TAB PO SCH (09:22)
[2023-09-10] MEDS: Atorvastatin Calcium 10 MG TAB PO SCH (09:22)
[2023-09-10] MEDS: Lisinopril 20 MG TAB PO SCH ×2 (09:22→22:12)
[2023-09-10] MEDS: metFORMIN 500 MG TAB PO SCH ×2 (09:24→22:12)
[2023-09-11] MEDS: Tamsulosin HCl 0.4 MG CAP PO SCH (04:12)
[2023-09-11] MEDS: HYDROcodone/Acetaminophen 10/325 mg Tablet PO PRN ×3 (04:13→17:30)
[2023-09-11] MEDS: Sodium Chloride 0.9% 1,000 ML IV SCH (06:23)
[2023-09-11] MEDS: metFORMIN 500 MG TAB PO SCH (09:56)
[2023-09-11] MEDS: Atorvastatin Calcium 10 MG TAB PO SCH (09:57)
[2023-09-11] MEDS: Isosorbide Mononitrate 30 MG ER.TAB PO SCH (09:57)
[2023-09-11] MEDS: Lisinopril 20 MG TAB PO SCH (09:57)
[2023-09-11 15:49] VITALS: BP 114/67; TEMP 97.1
[2023-09-11] MEDS: Cyclobenzaprine 10 MG TAB PO PRN (18:29)
== END 2023-09-11 19:00 | disposition home or self-care (01) | DRG 460 ==
LOC: SURG A 09-09 05:34
PROVIDERS: ADMIT Neurological Surgery; ATTEND Neurological Surgery
PROC: 0QP004Z Removal of Internal Fixation Device from Lumbar Vertebra, Open Approach (ICD-10-PCS; principal; 2023-09-09)
PROC: 0SG0071 Fusion of Lumbar Vertebral Joint with Autologous Tissue Substitute, Posterior Approach, Posterior Column, Open Approach (ICD-10-PCS; 2023-09-09)
PROC: 0SG3071 Fusion of Lumbosacral Joint with Autologous Tissue Substitute, Posterior Approach, Posterior Column, Open Approach (ICD-10-PCS; 2023-09-09)
PROC: 0SB40ZZ Excision of Lumbosacral Disc, Open Approach (ICD-10-PCS; 2023-09-09)
DX: T84.296A Other mechanical complication of internal fixation device of vertebrae, initial encounter (principal); M47.816 Spondylosis without myelopathy or radiculopathy, lumbar region; I10 Essential (primary) hypertension; E11.9 Type 2 diabetes mellitus without complications; G89.29 Other chronic pain; Z82.49 Family history of ischemic heart disease and other diseases of the circulatory system; Z83.3 Family history of diabetes mellitus; Z79.899 Other long term (current) drug therapy; Z79.82 Long term (current) use of aspirin; Z79.84 Long term (current) use of oral hypoglycemic drugs; E78.5 Hyperlipidemia, unspecified; Z96.652 Presence of left artificial knee joint; Z98.890 Other specified postprocedural states; K21.9 Gastro-esophageal reflux disease without esophagitis; N40.0 Benign prostatic hyperplasia without lower urinary tract symptoms
CPT/HCPCS: 36415; 36416; 80053; 85025; 93970; A4314; C1713; C1889; J0171; J1100; J1815; J1885; J2405; J2704; J2765; J3010; J3370; J3490; P9045; S0020; S0028